=== PATIENT | male | born 1990 | race Caucasian/White ===

== ENCOUNTER 2017-05-30 12:09 | Emergency (ER) | payer OTHER ==
[~2017-05-30 12:09] MED LIST: IBUPROFEN800 M1 PO; PERCOCET 5-3251 EACH PO; TRAMADOL HCL50 M1 PO
[2017-05-30 12:16] VITALS: BP 150/80
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
[2017-05-30] MEDS ORDERED: IBUPROFEN600 M1 PO (14:01)
== END 2017-05-30 14:12 ==
LOC: ERH 12:09
DX: S22.42XA Multiple fractures of ribs, left side, initial encounter for closed fracture (principal); V47.6XXA Car passenger injured in collision with fixed or stationary object in traffic accident, initial encounter; Y92.9 Unspecified place or not applicable; R07.89 Other chest pain